=== PATIENT | male | born 1995 | race Caucasian/White ===

== ENCOUNTER 2019-03-29 11:12 | Emergency (ER) | payer OTHER ==
[~2019-03-29] VITALS: Ht 193 cm; Wt 104.3 kg
== END 2019-03-29 12:56 | disposition home or self-care (01) ==
LOC: ER 11:12
DX: S20.222A Contusion of left back wall of thorax, initial encounter (principal); S20.221A Contusion of right back wall of thorax, initial encounter; M54.89 Other dorsalgia; V49.88XA Car occupant (driver) (passenger) injured in other specified transport accidents, initial encounter; Y93.89 Activity, other specified; Y92.488 Other paved roadways as the place of occurrence of the external cause; Y99.8 Other external cause status